=== PATIENT | male | born 1975 | race Caucasian/White ===

== ENCOUNTER 2019-05-08 20:18 | Emergency (ER) | payer OTHER ==
[~2019-05-08] VITALS: Ht 177.8 cm; Wt 77.1 kg
[~2019-05-08 20:18] MED LIST: PENICILLIN VK500 M1 PO; TRAMADOL 50 MG50 MG PO
[2019-05-08 20:57] VITALS: BP 125/95
== END 2019-05-08 20:58 | disposition left against medical advice (07) ==
LOC: M.ERS 20:18
DX: R11.10 Vomiting, unspecified (principal)

== ENCOUNTER 2020-02-07 10:07 | Emergency (ER) | payer OTHER ==
[~2020-02-07] VITALS: Ht 177.8 cm; Wt 79.4 kg
[2020-02-07 10:30] LABS: URINE BILIRUBIN NEGATIVE (Negative); URINE BLOOD NEGATIVE (Negative); URINE CLARITY CLEAR; URINE COLOR YELLOW; URINE GLUCOSE-RANDOM NEGATIVE (Negative); URINE KETONES NEGATIVE (Negative); URINE LEUKOCYTES-REFLEX NEGATIVE (Negative); URINE NITRITE-REFLEX NEGATIVE (Negative); URINE PROTEIN TRACE (Negative); URINE SPECIFIC GRAVITY >= 1.030 (1.005-1.030); URINE UROBILINOGEN 0.2 E.U./dl (0.2-1.0)
[2020-02-07 10:48] LABS: ABSOLUTE BASOPHILS 0.1 thou/uL (0.0-0.2); ABSOLUTE EOSINOPHILS 0.6 thou/uL (0.0-0.7); ABSOLUTE MONOCYTES 0.5 thou/uL (0.0-1.2); ABSOLUTE NEUTROPHILS 3.7 thou/uL (1.6-8.1); HEMATOCRIT 44.3 % (42.0-52.0); HEMOGLOBIN 15.4 gm/dL (14.0-18.0); LYMPHOCYTES 29.5 %; MCH 31.3 pg (26.0-34.0); MCHC 34.6 g/dL (28.0-37.0); MCV 90.5 fL (80.0-100.0); MONOCYTES 7.3 %; MPV 6.8 fl. (7.2-11.1); NUCLEATED RBCS 0 /100WBC; PLATELET COUNT* 339 thou/uL (150-400); POLYS 54.2 %; RDW-CV 13.6 % (10.5-14.5); WBC 6.9 thou/uL (4.0-11.0)
[2020-02-07 10:50] LABS: CALCIUM 8.2 mg/dL (8.5-10.1); CREATININE 1.3 mg/dL (0.6-1.3); POTASSIUM 3.9 mmol/L (3.5-5.1)
[2020-02-07 10:54] LABS: ALBUMIN 4.1 g/dL (3.4-5.0); TOTAL BILIRUBIN 0.5 mg/dL (<0.1-1.0); TOTAL PROTEIN 7.6 g/dL (6.4-8.2)
[2020-02-07] MEDS ORDERED: ONDANSETRON HCL4 M2 PO (11:31)
[2020-02-07 12:13] VITALS: BP 126/81
--- NOTE | 2020-02-07 15:53 | EKG ---
[place] [address] ELECTROCARDIOGRAM REPORT Name: MORENO BOWERS Room: [facility]#: [id number] Admission: 02/07/20 Attend Phys: Discharge: 02/07/20 Date of : 73 Date of Service: 02/07/20 [facility] Report #: [id number] THIS REPORT FOR: //name// [facility] ED Test Date: 2020-02-07 Test Time: 10:38:05 Pat Name: MORENO BOWERS Department: Room: Gender: Alteration Tailor: [place] : 1975 Requested By: Erika Contreras Order Number: [id number] MD: Ramesh Rivera Measurements Intervals [place] Rate: 68 P: 69 DE: 147 QRS: 71 QRSD: 86 T: 63 QT: 394 QTc: 420 Interpretive Statements Sinus rhythm Baseline wander in lead(s) I,II,aVR No previous ECG available for comparison Electronically Signed On 02-07-2020 15:51:33 CDT by Ramesh Rivera [email or web address] <ELECTRONICALLY SIGNED> By: Ramesh Rivera MD, [facility] 02/07/20 1551 1038 1038 Ramesh Rivera MD, FAC /EPI
== END 2020-02-07 12:14 | disposition home or self-care (01) ==
LOC: M.ERS 10:07
PROVIDERS: Nurse Practitioner Family
DX: R11.2 Nausea with vomiting, unspecified (principal)